=== PATIENT | male | born 1985 | race African-American/Black ===

== ENCOUNTER 2018-11-29 15:02 | Emergency (ER) | payer SELFPAY ==
[~2018-11-29] VITALS: Ht 185.4 cm; Wt 111.1 kg
[2018-11-29 15:10] VITALS: BP 129/77
== END 2018-11-29 15:49 | disposition left against medical advice (07) ==
LOC: ER 15:02
DX: N48.89 Other specified disorders of penis (principal); Z53.21 Procedure and treatment not carried out due to patient leaving prior to being seen by health care provider

== ENCOUNTER 2018-11-30 04:15 | Emergency (ER) | payer SELFPAY ==
[~2018-11-30] VITALS: Ht 185.4 cm; Wt 111.1 kg
[2018-11-30] MEDS ORDERED: cefTRIAXone SODIUM 250 MG VL IM ONE (07:15)
[2018-11-30] MEDS ORDERED: AZITHROMYCIN 250 MG TAB PO ONE (07:15)
[2018-11-30 07:36] VITALS: BP 123/78
== END 2018-11-30 07:38 | disposition home or self-care (01) ==
LOC: ER 04:15
DX: Z20.2 Contact with and (suspected) exposure to infections with a predominantly sexual mode of transmission (principal)
CPT/HCPCS: 96372; 99283; J0696

== ENCOUNTER 2019-08-07 20:55 | Emergency (ER) | payer SELFPAY ==
[~2019-08-07] VITALS: Ht 185.4 cm; Wt 108.9 kg
[2019-08-07 21:28] VITALS: BP 103/67
[2019-08-08] MEDS ORDERED: KETOROLAC TROMETH 60MG/2ML VIAL IM ONE (00:30)
== END 2019-08-08 01:16 | disposition home or self-care (01) ==
LOC: ER 20:55
DX: S33.5XXA Sprain of ligaments of lumbar spine, initial encounter (principal); M54.16 Radiculopathy, lumbar region; X58.XXXA Exposure to other specified factors, initial encounter; Y93.89 Activity, other specified; Y92.89 Other specified places as the place of occurrence of the external cause; Y99.8 Other external cause status
CPT/HCPCS: 72100; 96372; 99283; J1885

== ENCOUNTER 2019-09-19 17:29 | Emergency (ER) | payer OTHER ==
[~2019-09-19] VITALS: Ht 185.4 cm; Wt 113.4 kg
[2019-09-19 17:37] VITALS: BP 117/69
[2019-09-19] MEDS ORDERED: KETOROLAC TROMETH 60MG/2ML VIAL IM ONE (20:15)
== END 2019-09-19 20:59 | disposition home or self-care (01) ==
LOC: ER 17:29
DX: M54.41 Lumbago with sciatica, right side (principal); M54.16 Radiculopathy, lumbar region; F17.210 Nicotine dependence, cigarettes, uncomplicated; F12.10 Cannabis abuse, uncomplicated
CPT/HCPCS: 72100; 96372; 99283; J1885